=== PATIENT | female | born 1960 | race Caucasian/White ===

== ENCOUNTER 2018-06-25 14:15 | Observation (INO) | payer OTHER ==
[2018-06-25 15:25] LABS: BASO % 0.4 % (0.0-2.0); EOS # 0.3 K/uL (0.0-0.7); EOS % 5.2 % (0.0-4.0); HEMOGLOBIN 12.7 g/dL (11.0-16.0); LYMPH # 0.7 K/uL (1.0-4.3); LYMPH % 11.4 % (20.0-40.0); MEAN CELL VOLUME 85.7 fL (81.0-99.0); MEAN CORPUSCULAR HEMOGLOBIN 29.4 pg (27.0-31.0); MEAN CORPUSCULAR HGB CONC 34.3 g/dL (33.0-37.0); MEAN PLATELET VOLUME 7.1 fL (7.2-11.7); MONO # 0.3 K/uL (0.0-0.8); MONO % 5.1 % (0.0-10.0); NEUT # 4.8 K/uL (1.8-7.0); NEUT % 77.9 % (50.0-75.0); RBC 4.3 Mil/uL (3.80-5.20); RED CELL DISTRIBUTION WIDTH 13.8 % (11.5-14.5); WHITE BLOOD COUNT 6.1 K/uL (4.8-10.8)
--- NOTE | 2018-06-25 15:30 | C.PDOC ---
History Of Present Illness 58 yo female with PMHx history of pulmonary fibrosis sent to ER by Dr. Sue Cabrera for evaluation of shortness of breath, productive cough and fever since yesterday. Patient denies chest pain, leg edema, rash, abdominal pain, nausea/ vomiting. Patient's history is limited due to hearing impairment. Time Seen by Provider: 06/25/18 14:48 Chief Complaint (Nursing): Shortness Of Breath History Per: Patient, Manager Foreign History/Exam Limitations: physical impairment (hearing impairment) Associated Symptoms: denies: Fever, Chills, Chest Pain, Ankle/Leg Swelling Additional History Per: Patient Past Medical History Reviewed: Historical Data, Nursing Documentation, Vital Signs Vital Signs: Last Vital Signs Temp 97.3 F L 06/26/18 15:55 Pulse 82 06/26/18 16:09 Resp 18 06/26/18 15:55 BP 138/77 06/26/18 15:55 Pulse Ox 95 06/26/18 16:28 - Medical History Other PMH: pulmonary fibrosis Family History: States: No Known Family Hx - Social History Hx Tobacco Use: No Hx Alcohol Use: No Hx Substance Use: No - Immunization History Hx Tetanus Toxoid Vaccination: No Hx Influenza Vaccination: No Hx Pneumococcal Vaccination: No Review Of Systems Constitutional: Negative for: Fever, Chills Cardiovascular: Negative for: Chest Pain Respiratory: Positive for: Cough, Shortness of Breath (persistent) Gastrointestinal: Negative for: Nausea, Vomiting, Abdominal Pain Genitourinary: Negative for: Dysuria, Hematuria Musculoskeletal: Negative for: Other (leg swelling) Neurological: Negative for: Weakness, Numbness Physical Exam - Physical Exam Appears: Well, Non-toxic, Other (speaking in full sentences) Skin: Normal Color, Warm, Dry, No Rash Eye(s): bilateral: Normal Inspection Oral Mucosa: Moist Neck: Supple Cardiovascular: Rhythm Regular Respiratory: No Rales, No Rhonchi, No Wheezing, Other (coarse breath sounds at bilateral bases) Gastrointestinal/Abdominal: Normal Exam, Bowel Sounds, Soft, No Tenderness Back: Normal Inspection Extremity: Normal ROM, No Pedal Edema, No Calf Tenderness Neurological/Psych: Oriented x3 ED Course And Treatment - Laboratory Results Result Diagrams: 06/25/18 15:20 06/25/18 15:20 ECG: Interpreted By Me, Viewed By Me ECG Rhythm: Sinus Rhythm ECG Interpretation: Normal Interpretation Of ECG: Normal axis. No acute ST/T wave changes Rate From EC (bpm) O2 Sat by Pulse Oximetry: 95 (RA) Pulse Ox Interpretation: Normal - Other Rad CXR X-Ray: Viewed By Me, Read By Radiologist Interpretation: Accession No. : [id number]. Patient Name / ID : AI HUMPHREYS / [id number]. Exam Date : 06/25/2018 15:32:45 ( Approved ). Study Comment : Sex / Age : F / 58Y. Creator : Bella Velez. Dictator : Tyler Garcia MD. Emergency Medcl Emt : Shaft Tender : Tyler Garcia MD. Approver2 : Report Date : 06/25/2018 16:25:21. My Comment : . Date of service: 06/25/2018. HISTORY: sob. COMPARISON: No prior. TECHNIQUE: Chest PA and lateral. FINDINGS: LUNGS: Reticular opacities more prominent at the lower lobe. The possibility of lung fibrosis cannot be excluded. PLEURA: No significant pleural effusion identified. No pneumothorax apparent. CARDIOVASCULAR: Normal. OSSEOUS STRUCTURES: No significant abnormalities. VISUALIZED UPPER ABDOMEN: Normal. OTHER FINDINGS: None. IMPRESSION: Reticular opacities more prominent at the lower lobes suspicious for pulmonary congestion or lung fibrosis. If indicated further assessment by CT is suggested. Progress Note: Blood work, CXR, EKG ordered and reviewed. CXR shows B/L infiltrates? - IV Rocephin and Azithromycin ordered. Dr. De Leon consult entered for pulmonology. - Physician Consult Information Physician Contacted: Tanya Coello Outcome Of Conversation: Discussed patient with Dr. Coello, agrees with admission for pneumonia, dyspnea, pulmonary fibrosis. Dr. De Leon also spoken with and aware of consult. CT scan chest pending, they will follow. Disposition - Disposition Disposition: HOSPITALIZED Disposition Time: 18:08 Condition: STABLE - Clinical Impression Clinical Impression: Pulmonary fibrosis, Pneumonia, Dyspnea - Scribe Statement The provider has reviewed the documentation as recorded by the Mariselibe Betzy Garza Provider Attestation: All medical record entries made by the Bria were at my direction and personally dictated by me. I have reviewed the chart and agree that the record accurately reflects my personal performance of the history, physical exam, medical decision making, and the department course for this patient. I have also personally directed, reviewed, and agree with the discharge instructions and disposition. Decision To Admit - Pt Status Changed To: Hospital Disposition Of: Observation - . Bed Request Type: Telemetry Admitting Physician: Tanya Coello Patient Diagnosis: Pulmonary fibrosis, Dyspnea, Pneumonia
[2018-06-25 15:33] LABS: PROTHROMBIN TIME 11.4 SECONDS (9.7-12.2)
[2018-06-25 15:37] LABS: ALB/GLOB RATIO 1.2 (1.0-2.1); ALBUMIN 4.2 g/dL (3.5-5.0); ALT/SGPT 105 U/L (9-52); AST/SGOT 71 U/L (14-36); BLOOD UREA NITROGEN 10 mg/dL (7-17); CALCIUM 9.4 mg/dl (8.6-10.4); GFR AFRICAN-AMERICAN > 60; GFR NON-AFRICAN AMERICAN > 60
[2018-06-25 15:49] LABS: B-TYPE NATRIURETIC PEPTIDE 292 pg/mL (0-900); CK-MB 0.25 ng/mL (0.0-3.38)
[2018-06-25] MEDS ORDERED: cefTRIAXone IV 1 gm in Dextros 50 ML IV STA (17:26)
[2018-06-25] MEDS ORDERED: Azithromycin 500 MG in Sodium Chloride 0.9% 250 ML IVPB STA (17:27)
--- NOTE | 2018-06-25 17:32 | RAD ---
Date of service: 06/25/2018 HISTORY: sob COMPARISON: No prior. TECHNIQUE: Chest PA and lateral FINDINGS: LUNGS: Reticular opacities more prominent at the lower lobe. The possibility of lung fibrosis cannot be excluded. PLEURA: No significant pleural effusion identified. No pneumothorax apparent. CARDIOVASCULAR: Normal. OSSEOUS STRUCTURES: No significant abnormalities. VISUALIZED UPPER ABDOMEN: Normal. OTHER FINDINGS: None. IMPRESSION: Reticular opacities more prominent at the lower lobes suspicious for pulmonary congestion or lung fibrosis. If indicated further assessment by CT is suggested.
[2018-06-25] MEDS ORDERED: cefTRIAXone IV 1 gm in Dextros 50 ML IVPB ONE (17:53)
[2018-06-25] MEDS ORDERED: Promethazine DM 6.25 mg-15 mg/5 ml Syrup PO PRN (18:30)
--- NOTE | 2018-06-25 19:08 | CP.PCM.CON ---
History of Present Illness - History of Present Illness History of Present Illness: reason for consultation: shortness of breath,and cough 58-year-old female with history of pulmonary fibrosis presented to emergency room with worsening shortness of breath, productive cough and subjective fever since yesterday. Patient has been taking OFEV treatment for pulmonary fibrosis. Review of Systems - Review of Systems All systems: reviewed and no additional remarkable complaints except (shortness of breath and cough) Past Patient History - Infectious Disease Hx of Infectious Diseases: None - Past Social History Smoking Status: Never Smoked - PSYCHIATRIC Hx Substance Use: No Meds Allergies/Adverse Reactions: Allergies Allergy/AdvReac Type Severity Reaction Status Date / Time No Known Allergies Allergy Verified 06/17/15 09:28 - Medications Medications: Current Medications Famotidine (Pepcid) 20 mg IVP Q12 [facility] Heparin Sodium (Porcine) (Heparin) 5,000 units SC Q8 [facility] Ceftriaxone Sodium 1 gm/ (Sodium Chloride) 100 mls @ 100 mls/hr IVPB DAILY [facility] PRN Reason: Protocol Azithromycin 500 mg/ Sodium (Chloride) 250 mls @ 250 mls/hr IVPB DAILY [facility] PRN Reason: Protocol Methylprednisolone (Solu-Medrol) 60 mg IV Q6 [facility] Promethazine HCl/Dextromethorphan (Phenergan Dm Syrup) 5 ml PO Q6H PRN PRN Reason: Cough Physical Exam - Head Exam Head Exam: ATRAUMATIC, NORMOCEPHALIC - Eye Exam Eye Exam: Normal appearance - ENT Exam ENT Exam: Mucous Membranes Moist - Neck Exam Neck exam: Positive for: Normal Inspection - Respiratory Exam Respiratory Exam: Rales - Cardiovascular Exam Cardiovascular Exam: REGULAR RHYTHM - GI/Abdominal Exam GI & Abdominal Exam: Normal Bowel Sounds, Soft Results - Vital Signs Recent Vital Signs: Last Vital Signs Temp 99 F 06/25/18 14:19 Pulse 92 H 06/25/18 14:19 Resp 17 06/25/18 14:19 BP 124/87 06/25/18 14:19 Pulse Ox 95 06/25/18 18:30 - Labs Result Diagrams: 06/25/18 15:20 06/25/18 15:20 Labs: Laboratory Results - last 24 hr 06/25/18 06/25/18 06/25/18 15:20 15:20 15:20 WBC 6.1 RBC 4.30 Hgb 12.7 Hct 36.9 MCV 85.7 MCH 29.4 MCHC 34.3 RDW 13.8 Plt Count 322 MPV 7.1 L Neut % (Auto) 77.9 H Lymph % (Auto) 11.4 L Greene % (Auto) 5.1 Eos % (Auto) 5.2 H Baso % (Auto) 0.4 Neut # (Auto) 4.8 Lymph # (Auto) 0.7 L Greene # (Auto) 0.3 Eos # (Auto) 0.3 Baso # (Auto) 0.0 PT 11.4 INR 1.0 APTT 31 Sodium 141 Potassium 4.1 Chloride 104 Carbon Dioxide 25 Anion Gap 16 BUN 10 Creatinine 0.9 Est GFR ( Amer) > 60 Est GFR (Non-Af Amer) > 60 Random Glucose 98 Calcium 9.4 Total Bilirubin 0.9 AST 71 H ALT 105 H Alkaline Phosphatase 117 Total Creatine Kinase 79 CK-MB (Mass) 0.25 Troponin I < 0.0120 NT-Pro-B Natriuret Pep 292 Total Protein 7.6 Albumin 4.2 Globulin 3.4 Albumin/Globulin Ratio 1.2 Assessment & Plan (1) Pneumonia Assessment and Plan: continue IV antibiotics Follow-up culture and sensitivity Nebulizer treatment and steroids Status: Acute (2) Pulmonary fibrosis Status: Acute
--- NOTE | 2018-06-25 19:55 | CP.PCM.HP ---
History of Present Illness - History of Present Illness History of Present Illness: COMPREHENSIVE HISTORY & PHYSICAL EXAM HPI Patient is admitted from [facility] emergency room with shortness of breath wheezing cough with mild dry expectoration. Patient has history of pulmonary fibrosis. CAT scan of the chest was done which showed generalized fibrosis and reticular pattern. With possibility of pneumonia on the lower base. PAST HIST. PERSONAL HIST: Smoking. N Alcohol. N Allergy N Travel_- . FAMILY HIST : ROS : Constitutional: Negative for weight change, chills, night sweats, fatigue and usage of assist device. Eyes: Negative for redness, swelling, itching, discharge, vision changes, blurry vision, double vision, glaucoma, cataracts, Ears: Negative for hearing loss, ringing, , tinnitus, vertigo Nose: Negative for rhinorrhea, stuffiness, sniffing, itching, postnasal drip, discoloration, nasal congestion and epistaxis. Throat: Negative for throat clearing, sore throat, hoarseness, difficulty swallowing and difficulty speaking. Respiratory: Negative for,daytime somnolence, chronic cough, hemoptysis, snoring at night, Cardiovascular: Negative for chest pain, palpitations, orthopnea, PND, Edema of legs, leg cramps, angina, claudication, , irregular heartbeat, Neurology: Negative for irritability, muscle weakness, numbness and tingling, seizures, tremors, migraines, slurred speech, syncope, memory loss, mood changes , recurrent headaches Gastrointestinal: Negative for difficulty swallowing, diarrhea, constipation, black stools, rectal bleeding, nausea, flatulence, reflux, poor appetite, changes in bowel habits, abdominal pain Genitourinary: Negative for frequent urination, hematuria, discharge, incontinence, urinary retention, frequent UTI, Psychiatric: Negative for depression, anxiety/panic, suicidal tendencies, Musculoskeletal: Negative for swollen joints, back pain, , neck pain, morning stiffness of joints, . Skin: Negative for rash, ulcers, itching, dry skin and pigmented lesions. P/E: Constitutional: Appears stated age and in no apparent distress. Head: Normocephalic. Ears: External ear canals patent without inflammation. Tympanic membranes intact with normal light reflex and landmark. Eyes: Pupils are central, bilaterally equal, symmetrical and reacts to light with normal movements and no icterus or pallor. Nose: External nares are patent. Mucosa is pink Mouth-Throat: Good general appearance and condition. No post-pharyngeal/oropharyngeal erythema and tonsillar hypertrophy. Good dental hygiene. Neck-Lymphatic: Neck is supple with normal ROM, no thyromegaly, lymph nodes or masses. JVD is normal with no carotid bruit. Lungs: Bilateral rhonchi with poor air entry. Cardiovascular: S1 and S2 are normal with no murmurs, gallops and rub. GI Exam: No hepatomegaly. Abdomen is soft and non-tender. No Organomegaly , masses or hernias are evident and bowel sounds are normal and active. Neurology: Higher function and all cranial nerves intact, with no gross motor or sensory deficit. Superficial and deep reflexes are normal with downwards planters. No cerebellar deficit with normal gait. Musculoskeletal: No tender spots with normal curvature of the spine with no swelling or restricted ROM of the small and large joints. Extremities: Homans sign absent. Intact pulses with no pitting edema, calf tenderness or skin color changes. Skin: No rash, eruptions or abnormal skin pigmentation LAB/RADIOLOGY: ASSESMENT : Acute exacerbation of COPD with pulmonary fibrosis. Possible lower lobe pneumonia. PLAN: Nebulizer [id number], IV steroids and IV antibiotics. Present on Admission - Present on Admission Any Indicators Present on Admission: No Past Patient History - Infectious Disease Hx of Infectious Diseases: None - Past Social History Smoking Status: Never Smoked - PSYCHIATRIC Hx Substance Use: No Meds Allergies/Adverse Reactions: Allergies Allergy/AdvReac Type Severity Reaction Status Date / Time No Known Allergies Allergy Verified 06/17/15 09:28 Results - Vital Signs Recent Vital Signs: Last Vital Signs Temp 98.2 F 06/25/18 19:50 Pulse 87 06/25/18 19:50 Resp 20 06/25/18 19:50 BP 149/88 06/25/18 19:50 Pulse Ox 98 06/25/18 19:50 - Labs Result Diagrams: 06/25/18 15:20 06/25/18 15:20 Labs: Laboratory Results - last 24 hr 06/25/18 06/25/18 06/25/18 15:20 15:20 15:20 WBC 6.1 RBC 4.30 Hgb 12.7 Hct 36.9 MCV 85.7 MCH 29.4 MCHC 34.3 RDW 13.8 Plt Count 322 MPV 7.1 L Neut % (Auto) 77.9 H Lymph % (Auto) 11.4 L Heard % (Auto) 5.1 Eos % (Auto) 5.2 H Baso % (Auto) 0.4 Neut # (Auto) 4.8 Lymph # (Auto) 0.7 L Heard # (Auto) 0.3 Eos # (Auto) 0.3 Baso # (Auto) 0.0 PT 11.4 INR 1.0 APTT 31 Sodium 141 Potassium 4.1 Chloride 104 Carbon Dioxide 25 Anion Gap 16 BUN 10 Creatinine 0.9 Est GFR ( Amer) > 60 Est GFR (Non-Af Amer) > 60 Random Glucose 98 Calcium 9.4 Total Bilirubin 0.9 AST 71 H ALT 105 H Alkaline Phosphatase 117 Total Creatine Kinase 79 CK-MB (Mass) 0.25 Troponin I < 0.0120 NT-Pro-B Natriuret Pep 292 Total Protein 7.6 Albumin 4.2 Globulin 3.4 Albumin/Globulin Ratio 1.2
--- NOTE | 2018-06-26 05:40 | CT ---
Date of service: 06/25/2018 PROCEDURE: CT Chest without contrast HISTORY: dyspnea, pneumonia vs pulm fibrosis COMPARISON: None available. TECHNIQUE: Contiguous axial images were obtained through the chest without intravenous contrast enhancement. Sagittal and coronal reconstructions were performed. Radiation dose (DLP): 187.49 mGy-cm. This CT exam was performed using one or more of the following dose reduction techniques: Automated exposure control, adjustment of the mA and/or kV according to patient size, and/or use of iterative reconstruction technique. FINDINGS: LUNGS: There are reticular opacities and patchy ground-glass opacities in the lungs more prominent at the peripheral lungs and more prominent at the lung bases and lower lobes. There is associated mild bronchiectasis at the lower lobes. Findings suggestive of interstitial lung disease and early changes of lung fibrosis. The differential consideration includes but not limited to UIP, pneumonitis and chronic hypersensitivity pneumonitis. No evidence of pneumonia. MEDIASTINUM: The ascending thoracic aorta is mildly ectatic. The heart is upper normal limit in size. Main pulmonary artery unremarkable. No vascular congestion. No lymphadenopathy. PLEURA: No pleural fluid. No pneumothorax. BONES: No fracture. No destructive lesion. UPPER ABDOMEN: Small hiatus hernia is noted. The esophagus is mildly dilated. No evidence of acute pathology in the upper abdomen OTHER FINDINGS: 6 millimeter nonspecific right breast nodule may represent intramammary lymph node. IMPRESSION: Reticular and ground-glass opacities more prominent at the lower lobes and peripheral portion of the upper lobes likely represent interstitial lung disease and an early changes of lung fibrosis. Mild bronchiectasis at the lung bases likely related to lung fibrosis. The differential diagnosis includes usual interstitial pneumonia UIP, nonspecific interstitial pneumonia and chronic hypersensitivity pneumonitis. Nonspecific subcentimeter right breast nodule. Further assessment by sonogram or mammogram is suggested. Preliminary report was submitted by [facility]
[2018-06-26] MEDS: Azithromycin 500 MG in Sodium Chloride 0.9% 250 ML IVPB SCH (09:34)
--- NOTE | 2018-06-26 14:08 | CP.PCM.PN ---
Subjective - Date & Time of Evaluation Date of Evaluation: 06/26/18 Time of Evaluation: 14:06 - Subjective Subjective: CHIEF COMPLAINTS TODAY : Less shortness of breath and cough. ROS. HEENT : N. Resp : No hemoptysis Cardio : No anginal CP, PND, orthopnea, palpitation GI : No abd.pain, n/v ,diarrhea or GI bleeding . NUCLEAR MEDICINE SPECIALIST : No headache, vertigo, focal deficit. Musculoskel : No joint swelling , Derm : No rash Psych : Normal affect. Ext : No swelling ,calf pain PE. Pt. is alert awake in no distress. V.S As noted in the chart Head ,ear nose,throat and eyes : Normal. Neck : Supple with normal carotids. Lungs bilateral poor air entry with dry cramps. Heart : S1 & S2 normal with S4. No murmur. Abd : Soft non tender with normal bowel sounds. Neuro : Moves all ext. with no localized deficit. Ext : No edema with intact pulses.Non tender calves Derm : No rashes or decubitus ulcer. LABS/RADIOLOGY: ASSESSMENT/PLAN : Continue present management of IV steroids antibiotics and nebulized Objective - Vital Signs/Intake and Output Vital Signs (last 24 hours): Temp Pulse Resp BP Pulse Ox 97.4 F L 66 20 113/74 99 06/26/18 08:46 06/26/18 08:46 06/26/18 08:46 06/26/18 08:46 06/26/18 08:46 Intake and Output: 06/26/18 06/26/18 11:59 23:59 Intake Total 40 Balance 40 - Medications Medications: Current Medications Famotidine (Pepcid) 20 mg IVP Q12 [facility] Last Admin: 06/26/18 09:33 Dose: 20 mg Heparin Sodium (Porcine) (Heparin) 5,000 units SC Q8 [facility] Last Admin: 06/26/18 14:04 Dose: Not Given Ceftriaxone Sodium 1 gm/ (Sodium Chloride) 100 mls @ 100 mls/hr IVPB DAILY [facility] PRN Reason: Protocol Last Admin: 06/26/18 11:00 Dose: 100 mls/hr Azithromycin 500 mg/ Sodium (Chloride) 250 mls @ 250 mls/hr IVPB DAILY [facility] PRN Reason: Protocol Last Admin: 06/26/18 09:34 Dose: 250 mls/hr Methylprednisolone (Solu-Medrol) 60 mg IV Q6 [facility] Last Admin: 06/26/18 11:58 Dose: 60 mg Promethazine HCl/Dextromethorphan (Phenergan Dm Syrup) 5 ml PO Q6H PRN PRN Reason: Cough - Labs Labs: 06/25/18 15:20 06/25/18 15:20 PT 11.4 SECONDS (9.7-12.2) 06/25/18 15:20 INR 1.0 06/25/18 15:20 APTT 31 SECONDS (21-34) 06/25/18 15:20
[2018-06-26] MEDS: Albuterol-Ipratrop 3 mg / 0.5 (3 ml) UD INH SCH ×3 (16:02→23:36)
--- NOTE | 2018-06-26 18:00 | CP.PCM.PN ---
Subjective - Date & Time of Evaluation Date of Evaluation: 06/26/18 Time of Evaluation: 15:25 - Subjective Subjective: patient seen and examined Breathing and cough much improved Afebrile Patient wants to go home Objective - Vital Signs/Intake and Output Vital Signs (last 24 hours): Temp Pulse Resp BP Pulse Ox 97.3 F L 82 18 138/77 95 06/26/18 15:55 06/26/18 16:09 06/26/18 15:55 06/26/18 15:55 06/26/18 16:28 Intake and Output: 06/26/18 06/26/18 06:59 18:59 Intake Total 40 350 Balance 40 350 - Medications Medications: Current Medications Albuterol/Ipratropium (Duoneb 3 Mg/0.5 Mg (3 Ml) Ud) 3 ml INH RQ4 [facility] Last Admin: 06/26/18 16:02 Dose: 3 ml Famotidine (Pepcid) 20 mg IVP Q12 [facility] Last Admin: 06/26/18 09:33 Dose: 20 mg Heparin Sodium (Porcine) (Heparin) 5,000 units SC Q8 [facility] Last Admin: 06/26/18 14:04 Dose: Not Given Ceftriaxone Sodium 1 gm/ (Sodium Chloride) 100 mls @ 100 mls/hr IVPB DAILY [facility] PRN Reason: Protocol Last Admin: 06/26/18 11:00 Dose: 100 mls/hr Azithromycin 500 mg/ Sodium (Chloride) 250 mls @ 250 mls/hr IVPB DAILY [facility] PRN Reason: Protocol Last Admin: 06/26/18 09:34 Dose: 250 mls/hr Methylprednisolone (Solu-Medrol) 60 mg IV Q6 [facility] Last Admin: 06/26/18 17:32 Dose: 60 mg Promethazine HCl/Dextromethorphan (Phenergan Dm Syrup) 5 ml PO Q6H PRN PRN Reason: Cough - Labs Labs: 06/25/18 15:20 06/25/18 15:20 PT 11.4 SECONDS (9.7-12.2) 06/25/18 15:20 INR 1.0 06/25/18 15:20 APTT 31 SECONDS (21-34) 06/25/18 15:20 - Head Exam Head Exam: ATRAUMATIC, NORMOCEPHALIC - ENT Exam ENT Exam: Mucous Membranes Moist - Neck Exam Neck Exam: Normal Inspection - Respiratory Exam Respiratory Exam: Rales - Cardiovascular Exam Cardiovascular Exam: REGULAR RHYTHM - GI/Abdominal Exam GI & Abdominal Exam: Soft, Normal Bowel Sounds - Extremities Exam Extremities Exam: Normal Inspection Assessment and Plan (1) Pneumonia Assessment & Plan: continue antibiotics and taper steroids Status: Acute (2) Pulmonary fibrosis Status: Acute
[2018-06-27] MEDS: Albuterol-Ipratrop 3 mg / 0.5 (3 ml) UD INH SCH ×6 (03:11→23:32)
[2018-06-27 06:16] LABS: BASO # 0.1 K/uL (0.0-0.2); BASO % 0.9 % (0.0-2.0); LYMPH # 0.7 K/uL (1.0-4.3); LYMPH % 6.2 % (20.0-40.0); MEAN CELL VOLUME 86.8 fL (81.0-99.0); MEAN CORPUSCULAR HEMOGLOBIN 29.8 pg (27.0-31.0); MEAN CORPUSCULAR HGB CONC 34.4 g/dL (33.0-37.0); MEAN PLATELET VOLUME 7.2 fL (7.2-11.7); MONO # 0.3 K/uL (0.0-0.8); MONO % 3.3 % (0.0-10.0); NEUT # 9.4 K/uL (1.8-7.0); NEUT % 89.6 % (50.0-75.0); PLATELET COUNT 366 K/uL (130-400); RBC 4.01 Mil/uL (3.80-5.20); RED CELL DISTRIBUTION WIDTH 13.4 % (11.5-14.5); WHITE BLOOD COUNT 10.5 K/uL (4.8-10.8)
[2018-06-27 06:38] LABS: ALB/GLOB RATIO 1.3 (1.0-2.1); ALBUMIN 3.9 g/dL (3.5-5.0); ALT/SGPT 137 U/L (9-52); AST/SGOT 79 U/L (14-36); BLOOD UREA NITROGEN 13 mg/dL (7-17); CALCIUM 9.4 mg/dl (8.6-10.4); GFR AFRICAN-AMERICAN > 60; GFR NON-AFRICAN AMERICAN > 60
[2018-06-27 08:48] LABS: BANDS 1 % (0-2); LYMPHOCYTE 5 % (20-40); MONOCYTE 4 % (0-10); NEUTROPHIL 90 % (50-75); PLATELET ESTIMATE NORMAL (NORMAL); TOTAL CELLS COUNTED 100
[2018-06-27 08:49] LABS: ANISOCYTOSIS SLIGHT; HYPOCHROMIC SLIGHT; POIKILOCYTOSIS SLIGHT
[2018-06-27] MEDS: Azithromycin 500 MG in Sodium Chloride 0.9% 250 ML IVPB SCH (10:36)
--- NOTE | 2018-06-27 13:22 | CP.PCM.PN ---
Subjective - Date & Time of Evaluation Date of Evaluation: 06/27/18 Time of Evaluation: 11:20 - Subjective Subjective: patient seen and examined Breathing better Less cough Afebrile No chest pain Objective - Vital Signs/Intake and Output Vital Signs (last 24 hours): Temp Pulse Resp BP Pulse Ox 97.6 F 82 18 105/64 98 06/27/18 08:11 06/27/18 08:11 06/27/18 08:11 06/27/18 08:11 06/27/18 08:11 Intake and Output: 06/27/18 06/27/18 06:59 18:59 Intake Total 40 Balance 40 - Medications Medications: Current Medications Albuterol/Ipratropium (Duoneb 3 Mg/0.5 Mg (3 Ml) Ud) 3 ml INH RQ4 [facility] Last Admin: 06/27/18 07:10 Dose: 3 ml Famotidine (Pepcid) 20 mg IVP Q12 [facility] Last Admin: 06/27/18 09:15 Dose: 20 mg Heparin Sodium (Porcine) (Heparin) 5,000 units SC Q8 [facility] Last Admin: 06/27/18 05:44 Dose: 5,000 units Ceftriaxone Sodium 1 gm/ (Sodium Chloride) 100 mls @ 100 mls/hr IVPB DAILY [facility] PRN Reason: Protocol Last Admin: 06/27/18 09:15 Dose: 100 mls/hr Azithromycin 500 mg/ Sodium (Chloride) 250 mls @ 250 mls/hr IVPB DAILY [facility] PRN Reason: Protocol Last Admin: 06/27/18 10:36 Dose: 250 mls/hr Methylprednisolone (Solu-Medrol) 60 mg IV Q6 [facility] Last Admin: 06/27/18 11:38 Dose: 60 mg Promethazine HCl/Dextromethorphan (Phenergan Dm Syrup) 5 ml PO Q6H PRN PRN Reason: Cough - Labs Labs: 06/27/18 06:11 06/27/18 06:11 PT 11.4 SECONDS (9.7-12.2) 06/25/18 15:20 INR 1.0 06/25/18 15:20 APTT 31 SECONDS (21-34) 06/25/18 15:20 - Head Exam Head Exam: ATRAUMATIC, NORMOCEPHALIC - Eye Exam Eye Exam: Normal appearance - ENT Exam ENT Exam: Mucous Membranes Moist - Neck Exam Neck Exam: Normal Inspection - Respiratory Exam Respiratory Exam: Rales - Cardiovascular Exam Cardiovascular Exam: REGULAR RHYTHM - GI/Abdominal Exam GI & Abdominal Exam: Soft, Normal Bowel Sounds Assessment and Plan (1) Pneumonia Assessment & Plan: switch to p.o. antibiotics and stop azithromycin because of elevated LFTs P.o. prednisone Stable from pulmonary standpoin Status: Acute (2) Pulmonary fibrosis Status: Acute
--- NOTE | 2018-06-27 14:32 | CP.PCM.PN ---
Subjective - Date & Time of Evaluation Date of Evaluation: 06/27/18 Time of Evaluation: 14:29 - Subjective Subjective: CHIEF COMPLAINTS TODAY : Patient is mute and history obtained through computers. Patient still has mild cough and shortness of breath. ROS. HEENT : N. Resp : No hemoptysis Cardio : No anginal CP, PND, orthopnea, palpitation GI : No abd.pain, n/v ,diarrhea or GI bleeding . 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 Musculoskel : No joint swelling , Derm : No rash Psych : Normal affect. Ext : No swelling ,calf pain PE. Pt. is alert awake in no distress. V.S As noted in the chart Head ,ear nose,throat and eyes : Normal. Neck : Supple with normal carotids. Lungs: Bilateral poor air entry with rhonchi Heart : S1 & S2 normal with S4. No murmur. Abd : Soft non tender with normal bowel sounds. Neuro : Moves all ext. with no localized deficit. Ext : No edema with intact pulses.Non tender calves Derm : No rashes or decubitus ulcer. LABS/RADIOLOGY: Liver function is trending up ASSESSMENT/PLAN : ID evaluation for antibiotics as the current antibiotic is probably causing elevation in LFT. Continue bronchodilators and IV steroids. Objective - Vital Signs/Intake and Output Vital Signs (last 24 hours): Temp Pulse Resp BP Pulse Ox 97.6 F 84 18 111/69 98 06/27/18 08:11 06/27/18 13:53 06/27/18 08:11 06/27/18 13:53 06/27/18 08:11 Intake and Output: 06/27/18 06/27/18 11:59 23:59 Intake Total 40 Balance 40 - Medications Medications: Current Medications Albuterol/Ipratropium (Duoneb 3 Mg/0.5 Mg (3 Ml) Ud) 3 ml INH RQ4 [facility] Last Admin: 06/27/18 13:22 Dose: 3 ml Famotidine (Pepcid) 20 mg IVP Q12 [facility] Last Admin: 06/27/18 09:15 Dose: 20 mg Heparin Sodium (Porcine) (Heparin) 5,000 units SC Q8 [facility] Last Admin: 06/27/18 13:54 Dose: 5,000 units Ceftriaxone Sodium 1 gm/ (Sodium Chloride) 100 mls @ 100 mls/hr IVPB DAILY [facility] PRN Reason: Protocol Last Admin: 06/27/18 09:15 Dose: 100 mls/hr Azithromycin 500 mg/ Sodium (Chloride) 250 mls @ 250 mls/hr IVPB DAILY [facility] PRN Reason: Protocol Last Admin: 06/27/18 10:36 Dose: 250 mls/hr Methylprednisolone (Solu-Medrol) 60 mg IV Q6 [facility] Last Admin: 06/27/18 11:38 Dose: 60 mg Promethazine HCl/Dextromethorphan (Phenergan Dm Syrup) 5 ml PO Q6H PRN PRN Reason: Cough - Labs Labs: 06/27/18 06:11 06/27/18 06:11 PT 11.4 SECONDS (9.7-12.2) 06/25/18 15:20 INR 1.0 06/25/18 15:20 APTT 31 SECONDS (21-34) 06/25/18 15:20
--- NOTE | 2018-06-27 19:51 | CP.PCM.CON ---
History of Present Illness - History of Present Illness History of Present Illness: INFECTIOUS DISEASE CONSULT. PT SEEN ,CHART REVIEWED. DICTATED; DICT. NO. [id number] IMPRESSION; . PNEUMONIAE LEFT LOWER LOBE W BRONCHIECTASIS. .ILD WITH EARLY PULMONARY FIBROSIS ON TKI -OFEV. . EXACERBATION OF COPD. .TRANSAMINITIS-? DRUG-INDUCED. . HX OF ARTHRITIS ? RHEUMATOID. PLAN ; SEE ORDER SHEET. DC IV ROCEPHIN PT OFF ZITHROMAX TODAY. START IV CEFIPIME 1GM OD DAILY. TAPERING STEROIDS PER PULMONARY. ATYPICAL TITRES ALPHA 1 ANTITRYPSIN AB. [place] HEP SCREEN . CASE DISCUSSED WITH PMD,PULMONARYAND STAFF. WILL F/U WITH YOU. Past Patient History - Infectious Disease Hx of Infectious Diseases: None - Past Social History Smoking Status: Never Smoked - PSYCHIATRIC Hx Substance Use: No Meds Allergies/Adverse Reactions: Allergies Allergy/AdvReac Type Severity Reaction Status Date / Time No Known Allergies Allergy Verified 06/17/15 09:28 - Medications Medications: Current Medications Albuterol/Ipratropium (Duoneb 3 Mg/0.5 Mg (3 Ml) Ud) 3 ml INH RQ4 [facility] Last Admin: 06/27/18 19:35 Dose: 3 ml Famotidine (Pepcid) 20 mg IVP Q12 [facility] Last Admin: 06/27/18 09:15 Dose: 20 mg Heparin Sodium (Porcine) (Heparin) 5,000 units SC Q8 [facility] Last Admin: 06/27/18 13:54 Dose: 5,000 units Cefepime HCl 1 gm/ Sodium (Chloride) 50 mls @ 100 mls/hr IVPB DAILY [facility] PRN Reason: Protocol Prednisone (Prednisone Tab) 20 mg PO DAILY [facility] Last Admin: 06/27/18 17:51 Dose: 20 mg Promethazine HCl/Dextromethorphan (Phenergan Dm Syrup) 5 ml PO Q6H PRN PRN Reason: Cough Results - Vital Signs Recent Vital Signs: Last Vital Signs Temp 98.1 F 06/27/18 15:37 Pulse 59 L 06/27/18 16:00 Resp 18 06/27/18 15:37 BP 124/77 06/27/18 15:37 Pulse Ox 99 06/27/18 15:37 - Labs Result Diagrams: 06/28/18 06:35 06/28/18 06:35 Labs: Laboratory Results - last 24 hr 06/27/18 06/27/18 06:11 06:11 WBC 10.5 D RBC 4.01 Hgb 12.0 Hct 34.8 MCV 86.8 MCH 29.8 MCHC 34.4 RDW 13.4 Plt Count 366 MPV 7.2 Neut % (Auto) 89.6 H Lymph % (Auto) 6.2 L [place] % (Auto) 3.3 Eos % (Auto) 0.0 Baso % (Auto) 0.9 Neut # (Auto) 9.4 H Lymph # (Auto) 0.7 L [place] # (Auto) 0.3 Eos # (Auto) 0.0 Baso # (Auto) 0.1 Neutrophils % (Manual) 90 H Band Neutrophils % 1 Lymphocytes % (Manual) 5 L Monocytes % (Manual) 4 Platelet Estimate Normal Hypochromasia (manual) Slight Poikilocytosis (manual Slight Anisocytosis (manual) Slight Sodium 143 Potassium 4.2 Chloride 108 H Carbon Dioxide 21 L Anion Gap 18 BUN 13 Creatinine 0.7 Est GFR ( Amer) > 60 Est GFR (Non-Af Amer) > 60 Random Glucose 173 H Calcium 9.4 Phosphorus 2.6 Magnesium 2.5 H Total Bilirubin 0.3 AST 79 H ALT 137 H D Alkaline Phosphatase 115 Total Protein 6.9 Albumin 3.9 Globulin 3.0 Albumin/Globulin Ratio 1.3
--- NOTE | 2018-06-27 21:34 | CARD ---
APPROVED REPORT Date of service: 06/25/2018 EKG Measurement Heart [id number] <Conclusion> Normal sinus rhythm Normal ECG
[2018-06-28] MEDS: Albuterol-Ipratrop 3 mg / 0.5 (3 ml) UD INH SCH ×4 (03:20→23:31)
[2018-06-28 06:50] LABS: BASO % 0.2 % (0.0-2.0); HEMOGLOBIN 12.3 g/dL (11.0-16.0); LYMPH % 8.2 % (20.0-40.0); MEAN CELL VOLUME 87.3 fL (81.0-99.0); MEAN CORPUSCULAR HEMOGLOBIN 29.5 pg (27.0-31.0); MEAN CORPUSCULAR HGB CONC 33.8 g/dL (33.0-37.0); MEAN PLATELET VOLUME 7.3 fL (7.2-11.7); MONO # 0.6 K/uL (0.0-0.8); MONO % 5.4 % (0.0-10.0); NEUT # 10.2 K/uL (1.8-7.0); NEUT % 86.2 % (50.0-75.0); PLATELET COUNT 402 K/uL (130-400); RBC 4.16 Mil/uL (3.80-5.20); RED CELL DISTRIBUTION WIDTH 14.4 % (11.5-14.5); WHITE BLOOD COUNT 11.8 K/uL (4.8-10.8)
[2018-06-28 06:59] LABS: ALB/GLOB RATIO 1.3 (1.0-2.1); ALBUMIN 4.2 g/dL (3.5-5.0); ALT/SGPT 125 U/L (9-52); AST/SGOT 56 U/L (14-36); BILIRUBIN,DIRECT 0.3 mg/dL (0.0-0.4); BLOOD UREA NITROGEN 15 mg/dL (7-17); CALCIUM 9.4 mg/dl (8.6-10.4); GFR AFRICAN-AMERICAN > 60; GFR NON-AFRICAN AMERICAN > 60
[2018-06-28 07:26] LABS: HEPATITIS B SURFACE AG Negative (NEGATIVE)
[2018-06-28 07:31] LABS: HEPATITIS A IGM NEGATIVE (NEGATIVE); HEPATITIS B CORE AB NEGATIVE (NEGATIVE)
[2018-06-28 07:43] LABS: HEPATITIS C ANTIBODY NEGATIVE (NEGATIVE)
[2018-06-28 09:40] LABS: BANDS 2 % (0-2); LYMPHOCYTE 6 % (20-40); MONOCYTE 4 % (0-10); NEUTROPHIL 88 % (50-75); TOTAL CELLS COUNTED 100
[2018-06-28 09:41] LABS: PLATELET ESTIMATE SLIGHTLY INCREASED (NORMAL)
[2018-06-28] MEDS: Cefepime 1 GM in Sodium Chloride 0.9% 50 ML IVPB SCH (09:52)
[2018-06-28 10:44] LABS: N MENINGITIS ACY/W135 NEGATIVE (NEGATIVE); N MENINGITIS B/ECOLI K1 NEGATIVE (NEGATIVE); STREP PNEUMONIAE NEGATIVE (NEGATIVE); STREPTOCOCCUS B NEGATIVE (NEGATIVE)
--- NOTE | 2018-06-28 10:49 | CP.PCM.PN ---
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 Objective - Vital Signs/Intake and Output Vital Signs (last 24 hours): Temp Pulse Resp BP Pulse Ox 97.6 F 65 20 104/62 99 06/28/18 07:00 06/28/18 07:00 06/28/18 07:00 06/28/18 07:00 06/28/18 07:00 Intake and Output: 06/28/18 06/28/18 06:59 18:59 Intake Total 480 Balance 480 - Medications Medications: Current Medications Albuterol/Ipratropium (Duoneb 3 Mg/0.5 Mg (3 Ml) Ud) 3 ml INH RQ4 [facility] Last Admin: 06/28/18 03:20 Dose: Not Given Famotidine (Pepcid) 20 mg PO Q12 [facility] Last Admin: 06/28/18 09:52 Dose: 20 mg Heparin Sodium (Porcine) (Heparin) 5,000 units SC Q8 [facility] Last Admin: 06/28/18 05:43 Dose: 5,000 units Cefepime HCl 1 gm/ Sodium (Chloride) 50 mls @ 100 mls/hr IVPB DAILY [facility] PRN Reason: Protocol Last Admin: 06/28/18 09:52 Dose: 100 mls/hr Prednisone (Prednisone Tab) 20 mg PO DAILY [facility] Last Admin: 06/28/18 09:52 Dose: 20 mg Promethazine HCl/Dextromethorphan (Phenergan Dm Syrup) 5 ml PO Q6H PRN PRN Reason: Cough - Labs Labs: 06/28/18 06:35 06/28/18 06:35 PT 11.4 SECONDS (9.7-12.2) 06/25/18 15:20 INR 1.0 06/25/18 15:20 APTT 31 SECONDS (21-34) 06/25/18 15:20 - Head Exam Head Exam: ATRAUMATIC, NORMOCEPHALIC - Eye Exam Eye Exam: Normal appearance - ENT Exam ENT Exam: Mucous Membranes Moist - Neck Exam Neck Exam: Normal Inspection - Respiratory Exam Respiratory Exam: Rales - Cardiovascular Exam Cardiovascular Exam: REGULAR RHYTHM - GI/Abdominal Exam GI & Abdominal Exam: Soft, Normal Bowel Sounds Assessment and Plan (1) Pneumonia Assessment & Plan: clinically much improved LFTs improving Okay to go home Follow up in the office Switch to p.o. antibiotics Status: Acute (2) Pulmonary fibrosis Status: Acute
--- NOTE | 2018-06-28 13:56 | CP.PCM.PN ---
Subjective - Date & Time of Evaluation Date of Evaluation: 06/28/18 Time of Evaluation: 13:54 - Subjective Subjective: CHIEF COMPLAINTS TODAY : Patient is mute and history obtained through computers. Patient still has mild cough and shortness of breath. patient had a periods of sinus bradycardia during sleeping time. Currently patient has not complained but patient is mute ROS. HEENT : N. Resp : No hemoptysis Cardio : No anginal CP, PND, orthopnea, palpitation GI : No abd.pain, n/v ,diarrhea or GI bleeding . 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 Musculoskel : No joint swelling , Derm : No rash Psych : Normal affect. Ext : No swelling ,calf pain PE. Pt. is alert awake in no distress. V.S As noted in the chart Head ,ear nose,throat and eyes : Normal. Neck : Supple with normal carotids. Lungs: Bilateral poor air entry with rhonchi Heart : S1 & S2 normal with S4. No murmur. Abd : Soft non tender with normal bowel sounds. Neuro : Moves all ext. with no localized deficit. Ext : No edema with intact pulses.Non tender calves Derm : No rashes or decubitus ulcer. LABS/RADIOLOGY: Liver function is trending up ASSESSMENT/PLAN : Will discuss with ID for antibiotics. Continue present management Objective - Vital Signs/Intake and Output Vital Signs (last 24 hours): Temp Pulse Resp BP Pulse Ox 97.6 F 70 20 143/88 99 06/28/18 07:00 06/28/18 11:53 06/28/18 07:00 06/28/18 11:53 06/28/18 07:00 Intake and Output: 06/28/18 06/28/18 11:59 23:59 Intake Total 240 Balance 240 - Medications Medications: Current Medications Albuterol/Ipratropium (Duoneb 3 Mg/0.5 Mg (3 Ml) Ud) 3 ml INH RQ4 [facility] Last Admin: 06/28/18 03:20 Dose: Not Given Famotidine (Pepcid) 20 mg PO Q12 [facility] Last Admin: 06/28/18 09:52 Dose: 20 mg Heparin Sodium (Porcine) (Heparin) 5,000 units SC Q8 [facility] Last Admin: 06/28/18 13:39 Dose: 5,000 units Cefepime HCl 1 gm/ Sodium (Chloride) 50 mls @ 100 mls/hr IVPB DAILY [facility] PRN Reason: Protocol Last Admin: 06/28/18 09:52 Dose: 100 mls/hr Prednisone (Prednisone Tab) 20 mg PO DAILY [facility] Last Admin: 06/28/18 09:52 Dose: 20 mg Promethazine HCl/Dextromethorphan (Phenergan Dm Syrup) 5 ml PO Q6H PRN PRN Reason: Cough - Labs Labs: 06/28/18 06:35 06/28/18 06:35 PT 11.4 SECONDS (9.7-12.2) 06/25/18 15:20 INR 1.0 06/25/18 15:20 APTT 31 SECONDS (21-34) 06/25/18 15:20
--- NOTE | 2018-06-28 14:25 | CP.PCM.PN ---
Subjective - Date & Time of Evaluation Date of Evaluation: 06/28/18 Time of Evaluation: 14:24 - Subjective Subjective: CHIEF COMPLAINTS TODAY : afebrile. Still with some cough but dry Denies shortness of breath or chest pain periods of bradycardia while asleep. ROS. HEENT : N. Resp : No hemoptysis Cardio : No anginal CP, PND, orthopnea, palpitation GI : No abd.pain, n/v ,diarrhea or GI bleeding . 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 Musculoskel : No joint swelling , Derm : No rash Psych : Normal affect. Ext : No swelling ,calf pain PE. Pt. is alert awake in no distress. V.S As noted in the chart Head ,ear nose,throat and eyes : Normal. Neck : Supple with normal carotids. Lungs: Bilateral poor air entry, basilar rhonchi. -ve wheeze Heart : S1 & S2 normal . No murmur. Abd : Soft non tender with normal bowel sounds. Neuro : Moves all ext. with no localized deficit. Ext : No edema with intact pulses.Non tender calves Derm : No rashes or decubitus ulcer. LABS/RADIOLOGY: wbc 11.8 CREATININE 0.8 LFTS IMPROVING RICO -VE HEPATITIS SCREEN NEGATIVE. IMPRESSION; . PNEUMONIAE LEFT LOWER LOBE W BRONCHIECTASIS. .ILD WITH EARLY PULMONARY FIBROSIS ON TKI -OFEV. . EXACERBATION OF COPD. .TRANSAMINITIS-? DRUG-INDUCED. . HX OF ARTHRITIS ? RHEUMATOID. PLAN ; ON IV CEFIPIME 1GM OD DAILY.06/28/18 TAPERING STEROIDS PER PULMONARY. F/U ATYPICAL TITRES ALPHA 1 ANTITRYPSIN AB.-P WILL SWITCH HER TO BY MOUTH ABX IN A.M.if cleared by cardiology/PMD CASE DISCUSSED WITH PULMONARY. PATIENT WITH PERIODS OF BRADYCARDIA REPORTED. PATIENT TO BE OBSERVED WHILE IN HOSPITAL . ? HOLTER . Objective - Vital Signs/Intake and Output Vital Signs (last 24 hours): Temp Pulse Resp BP Pulse Ox 97.6 F 70 20 143/88 99 06/28/18 07:00 06/28/18 11:53 06/28/18 07:00 06/28/18 11:53 06/28/18 07:00 Intake and Output: 06/28/18 06/28/18 06:59 18:59 Intake Total 480 240 Balance 480 240 - Medications Medications: Current Medications Albuterol/Ipratropium (Duoneb 3 Mg/0.5 Mg (3 Ml) Ud) 3 ml INH RQ4 [facility] Last Admin: 06/28/18 03:20 Dose: Not Given Famotidine (Pepcid) 20 mg PO Q12 [facility] Last Admin: 06/28/18 09:52 Dose: 20 mg Heparin Sodium (Porcine) (Heparin) 5,000 units SC Q8 [facility] Last Admin: 06/28/18 13:39 Dose: 5,000 units Cefepime HCl 1 gm/ Sodium (Chloride) 50 mls @ 100 mls/hr IVPB DAILY [facility] PRN Reason: Protocol Last Admin: 06/28/18 09:52 Dose: 100 mls/hr Prednisone (Prednisone Tab) 20 mg PO DAILY [facility] Last Admin: 06/28/18 09:52 Dose: 20 mg Promethazine HCl/Dextromethorphan (Phenergan Dm Syrup) 5 ml PO Q6H PRN PRN Reason: Cough - Labs Labs: 06/28/18 06:35 06/28/18 06:35 PT 11.4 SECONDS (9.7-12.2) 06/25/18 15:20 INR 1.0 06/25/18 15:20 APTT 31 SECONDS (21-34) 06/25/18 15:20
[2018-06-29] MEDS: Albuterol-Ipratrop 3 mg / 0.5 (3 ml) UD INH SCH ×4 (03:17→16:13)
[2018-06-29 04:57] VITALS: TEMP 97.7; O2SAT 98
[2018-06-29 08:16] VITALS: BP 135/78; RESP 18
[2018-06-29] MEDS: Cefepime 1 GM in Sodium Chloride 0.9% 50 ML IVPB SCH (09:47)
--- NOTE | 2018-06-29 13:55 | CP.PCM.PN ---
Subjective - Date & Time of Evaluation Date of Evaluation: 06/29/18 Time of Evaluation: 13:55 Objective - Vital Signs/Intake and Output Vital Signs (last 24 hours): Temp Pulse Resp BP Pulse Ox 97.7 F 69 18 135/78 98 06/29/18 08:15 06/29/18 08:15 06/29/18 08:15 06/29/18 08:15 06/29/18 08:15 Intake and Output: 06/29/18 06/29/18 06:59 18:59 Intake Total 480 Balance 480 - Medications Medications: Current Medications Albuterol/Ipratropium (Duoneb 3 Mg/0.5 Mg (3 Ml) Ud) 3 ml INH RQ4 [facility] Last Admin: 06/29/18 11:06 Dose: 3 ml Famotidine (Pepcid) 20 mg PO Q12 [facility] Last Admin: 06/29/18 09:46 Dose: 20 mg Cefepime HCl 1 gm/ Sodium (Chloride) 50 mls @ 100 mls/hr IVPB DAILY [facility] PRN Reason: Protocol Last Admin: 06/29/18 09:47 Dose: 100 mls/hr Prednisone (Prednisone Tab) 20 mg PO DAILY [facility] Last Admin: 06/29/18 09:46 Dose: 20 mg Promethazine HCl/Dextromethorphan (Phenergan Dm Syrup) 5 ml PO Q6H PRN PRN Reason: Cough - Labs Labs: 06/28/18 06:35 06/28/18 06:35 PT 11.4 SECONDS (9.7-12.2) 06/25/18 15:20 INR 1.0 06/25/18 15:20 APTT 31 SECONDS (21-34) 06/25/18 15:20
--- NOTE | 2018-06-29 14:33 | CP.PCM.DIS ---
Provider - Provider Date of Admission: 06/25/18 18:08 Attending physician: Tanya Coello MD Time Spent in preparation of Discharge (in minutes): 35 Hospital Course - Lab Results Lab Results: Micro Results 06/25/18 16:30 Blood Blood Culture - Preliminary NO GROWTH AFTER 3 DAYS 06/25/18 16:00 Blood Blood Culture - Preliminary NO GROWTH AFTER 3 DAYS Most Recent Lab Values WBC 11.8 K/uL (4.8-10.8) H 06/28/18 06:35 RBC 4.16 Mil/uL (3.80-5.20) 06/28/18 06:35 Hgb 12.3 g/dL (11.0-16.0) 06/28/18 06:35 Hct 36.3 % (34.0-47.0) 06/28/18 06:35 MCV 87.3 fL (81.0-99.0) 06/28/18 06:35 MCH 29.5 pg (27.0-31.0) 06/28/18 06:35 MCHC 33.8 g/dL (33.0-37.0) 06/28/18 06:35 RDW 14.4 % (11.5-14.5) 06/28/18 06:35 Plt Count 402 K/uL (130-400) H 06/28/18 06:35 MPV 7.3 fL (7.2-11.7) 06/28/18 06:35 Neut % (Auto) 86.2 % (50.0-75.0) H 06/28/18 06:35 Lymph % (Auto) 8.2 % (20.0-40.0) L 06/28/18 06:35 [place] % (Auto) 5.4 % (0.0-10.0) 06/28/18 06:35 Eos % (Auto) 0.0 % (0.0-4.0) 06/28/18 06:35 Baso % (Auto) 0.2 % (0.0-2.0) 06/28/18 06:35 Neut # (Auto) 10.2 K/uL (1.8-7.0) H 06/28/18 06:35 Lymph # (Auto) 1.0 K/uL (1.0-4.3) 06/28/18 06:35 [place] # (Auto) 0.6 K/uL (0.0-0.8) 06/28/18 06:35 Eos # (Auto) 0.0 K/uL (0.0-0.7) 06/28/18 06:35 Baso # (Auto) 0.0 K/uL (0.0-0.2) 06/28/18 06:35 Neutrophils % (Manual) 88 % (50-75) H 06/28/18 06:35 Band Neutrophils % 2 % (0-2) 06/28/18 06:35 Lymphocytes % (Manual) 6 % (20-40) L 06/28/18 06:35 Monocytes % (Manual) 4 % (0-10) 06/28/18 06:35 Platelet Estimate Slightly increased (NORMAL) H 06/28/18 06:35 RBC Morphology Normal 06/28/18 06:35 Hypochromasia (manual) Slight 06/27/18 06:11 Poikilocytosis (manual Slight 06/27/18 06:11 Anisocytosis (manual) Slight 06/27/18 06:11 PT 11.4 SECONDS (9.7-12.2) 06/25/18 15:20 INR 1.0 06/25/18 15:20 APTT 31 SECONDS (21-34) 06/25/18 15:20 Sodium 146 mmol/L (132-148) 06/28/18 06:35 Potassium 4.3 mmol/L (3.6-5.2) 06/28/18 06:35 Chloride 108 mmol/L (98-107) H 06/28/18 06:35 Carbon Dioxide 26 mmol/L (22-30) 06/28/18 06:35 Anion Gap 16 (10-20) 06/28/18 06:35 BUN 15 mg/dL (7-17) 06/28/18 06:35 Creatinine 0.8 mg/dL (0.7-1.2) 06/28/18 06:35 Est GFR ( Amer) > 60 06/28/18 06:35 Est GFR (Non-Af Amer) > 60 06/28/18 06:35 Random Glucose 95 mg/dL (65-105) 06/28/18 06:35 Calcium 9.4 mg/dl (8.6-10.4) 06/28/18 06:35 Phosphorus 2.6 mg/dL (2.5-4.5) 06/27/18 06:11 Magnesium 2.5 mg/dL (1.6-2.3) H 06/27/18 06:11 Total Bilirubin 0.3 mg/dL (0.2-1.3) 06/28/18 06:35 Direct Bilirubin 0.3 mg/dL (0.0-0.4) 06/28/18 06:35 AST 56 U/L (14-36) H D 06/28/18 06:35 ALT 125 U/L (9-52) H 06/28/18 06:35 Alkaline Phosphatase 112 U/L (38-126) 06/28/18 06:35 Total Creatine Kinase 79 U/L (30-135) 06/25/18 15:20 CK-MB (Mass) 0.25 ng/mL (0.0-3.38) 06/25/18 15:20 Troponin I < 0.0120 ng/mL (0.00-0.120) 06/25/18 15:20 NT-Pro-B Natriuret Pep 292 pg/mL (0-900) 06/25/18 15:20 Total Protein 7.4 g/dL (6.3-8.3) 06/28/18 06:35 Albumin 4.2 g/dL (3.5-5.0) 06/28/18 06:35 Globulin 3.2 gm/dL (2.2-3.9) 06/28/18 06:35 Albumin/Globulin Ratio 1.3 (1.0-2.1) 06/28/18 06:35 Guhny-6-Hcwriexlmxf 171 mg/dL (83-199) 06/28/18 06:35 RICO 6 Profile Negative (NEGATIVE) 06/28/18 06:35 Hepatitis A IgM Ab Negative (NEGATIVE) 06/28/18 06:35 Hep Bs Antigen Negative (NEGATIVE) 06/28/18 06:35 Hep B Core IgM Ab Negative (NEGATIVE) 06/28/18 06:35 Hepatitis C Antibody Negative (NEGATIVE) 06/28/18 06:35 H.influenzae Type B Ag Negative (NEGATIVE) 06/27/18 06:00 Ur L.pneumophila Ag Negative (NEGATIVE) 06/27/18 22:27 Mycoplasma pneumon IgM Negative (NEGATIVE) 06/28/18 06:35 N.meningitidis ACY/W135 Negative (NEGATIVE) 06/27/18 06:00 N.meningi B/E.coli K1 Ag Negative (NEGATIVE) 06/27/18 06:00 Group B Strep Antigen Negative (NEGATIVE) 06/27/18 06:00 S. pneumoniae Antigen Negative (NEGATIVE) 06/27/18 06:00 - Hospital Course Hospital Course: Patient is admitted from [facility] emergency room with shortness of breath wheezing cough with mild dry expectoration. Patient has history of pulmonary fibrosis. CAT scan of the chest was done which showed generalized fibrosis and reticular pattern. With possibility of pneumonia on the lower base. ID pulmonary consult was obtained Patient was treated with IV antibiotics and IV steroids and nebulizer. CT scan also showed some bronchiectasis and patient improved on IV antibiotics prior to discharge patient had a brief episode of sinus bradycardia during sleeping hours. Patient was observed for 24 hours and no further bradycardia. As per the pulmonary patient was cleared for discharge. Patient was discharged on by mouth antibiotics and her home medication. Discharge Exam - Head Exam Head Exam: ATRAUMATIC, NORMOCEPHALIC Discharge Plan - Follow Up Plan Condition: STABLE Disposition: HOME/ ROUTINE Additional Instructions: -FOLLOW UP WITH DR. COELLO IN THE OFFICE IN 5-7 DAYS---CALL THE OFFICE TO MAKE AN APPOINTMENT. -CONTINUE HOME MEDICATIONS USUAL. -YOU HAVE BEEN PRESCRIBED THE FOLLOWING MEDICATIONS: 1) - Referrals: Alexander De Leon MD [Staff Provider] - Isela Pickens MD [Staff Provider] - Tanya Coello MD [Staff Provider] -
--- NOTE | 2018-06-29 14:52 | CP.PCM.PN ---
Subjective - Date & Time of Evaluation Date of Evaluation: 06/29/18 Time of Evaluation: 14:52 - Subjective Subjective: SMASHER HAND FROM "ARIANNA SMITH (#[id number]) -FOLLOW UP WITH DR. MILLER AND DR. HERNANDEZ IN THEIR OFFICE IN 5-7 DAYS---CALL THE OFFICE TO MAKE AN APPOINTMENT. -FOLLOW UP WITH DR. ADRIAN IN THE OFFICE. -CONTINUE HOME MEDICATIONS USUAL, INCLUDING ANY INHALERS WELL YOUR LIPITOR. -YOU HAVE BEEN PRESCRIBED THE FOLLOWING MEDICATIONS: 1) ANTIBIOTIC: VANTIN 200 MG---TAKE 1 TABLET BY MOUTH TWICE A DAY FOR A TOTAL OF 7 DAYS (TAKE AFTER BREAKFAST AND AFTER DINNER); YOU MAY START TAKING THIS MEDICATION TONIGHT (06/29/18). 2) PROBIOTIC/VITAMIN FOR YOUR STOMACH WHILE YOU ARE TAKING THE ANTIBIOTIC: FLORASTOR 250 MG---TAKE 1 CAPSULE BY MOUTH TWICE A DAY FOR A TOTAL OF 7 DAYS (TAKE AFTER BREAKFAST AND AFTER DINNER); YOU MAY START TAKING THIS MEDICATION TONIGHT (06/29/18). -IF YOU HAVE ANY FURTHER QUESTIONS OR CONCERNS, CONTACT DR. MILLER OR DR. ADRIAN. Objective - Vital Signs/Intake and Output Vital Signs (last 24 hours): Temp Pulse Resp BP Pulse Ox 97.7 F 83 18 135/78 98 06/29/18 08:15 06/29/18 12:00 06/29/18 08:15 06/29/18 08:15 06/29/18 08:15 Intake and Output: 06/29/18 06/29/18 06:59 18:59 Intake Total 480 Balance 480 - Medications Medications: Current Medications Albuterol/Ipratropium (Duoneb 3 Mg/0.5 Mg (3 Ml) Ud) 3 ml INH RQ4 [facility] Last Admin: 06/29/18 11:06 Dose: 3 ml Famotidine (Pepcid) 20 mg PO Q12 [facility] Last Admin: 06/29/18 09:46 Dose: 20 mg Cefepime HCl 1 gm/ Sodium (Chloride) 50 mls @ 100 mls/hr IVPB DAILY [facility] PRN Reason: Protocol Last Admin: 06/29/18 09:47 Dose: 100 mls/hr Prednisone (Prednisone Tab) 20 mg PO DAILY [facility] Last Admin: 06/29/18 09:46 Dose: 20 mg Promethazine HCl/Dextromethorphan (Phenergan Dm Syrup) 5 ml PO Q6H PRN PRN Reason: Cough - Labs Labs: 06/28/18 06:35 06/28/18 06:35 PT 11.4 SECONDS (9.7-12.2) 06/25/18 15:20 INR 1.0 06/25/18 15:20 APTT 31 SECONDS (21-34) 06/25/18 15:20
[2018-06-29 16:21] VITALS: PULSE 87
--- NOTE | 2018-07-01 07:07 | CON ---
Copied To: Isela Pickens MD Attending MD: Isela Pickens MD DATE: 06/27/2018 INFECTIOUS DISEASE CONSULTATION. REQUESTED BY: Tanya Coello MD REASON FOR CONSULTATION: Bilateral pneumonia and idiopathic pulmonary fibrosis. 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 Chest x-ray on admission showed bilateral reticular opacity, more prominent in the left lower lobes, consistent with lung fibrosis versus infiltrates. A CT chest and pulmonary consultation was obtained. As reported, CT chest was consistent with ground-glass opacities, more prominent in the lower lobes and peripheral portion of the upper lobes consistent with interstitial lung disease and early lung fibrosis. Also, bronchiectasis was seen in the lung bases and nonspecific right breast nodule was also seen. The patient states she has been on tyrosine kinase inhibitor for idiopathic pulmonary fibrosis, Ofev as per her fashion supervisor, Dr. De Leon. The patient was started on broad-spectrum antibiotics including Rocephin and Zithromax. Infectious Disease consultation was requested by PMD as he noted elevated liver enzymes as well as persistent cough. The patient presently denies any expectoration, but states that on admission, she had copious phlegm. The patient denies any headaches and denies any diarrhea. 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 She denies any previous exposure or recent contact with TB. PAST MEDICAL HISTORY: As above, history of idiopathic pulmonary fibrosis. FAMILY HISTORY: Unremarkable, not well known. SOCIAL HISTORY: Denies history of tobacco, alcohol use, or substance abuse. IMMUNIZATION HISTORY: She states she has got pneumococcal vaccination and influenza vaccination but denies any tetanus toxoid exposure or vaccination. REVIEW OF SYSTEMS: Limited but the patient still complains of some cough, which is becoming nonproductive and dry in nature. GI: Denies loss of weight; presently denies any nausea, vomiting, abdominal pain, or diarrhea. : Unremarkable. No dysuria, no hematuria. [employer]: No headaches, no numbness, no weakness, no seizures, no sinus problems. MEDICATIONS: As per chart review, the patient is presently off Zithromax, which was discontinued today, presently on Rocephin 1 g once a day daily. Other medications include heparin subcutaneously, Pepcid, Phenergan DM cough syrup, and prednisone that is started today after discontinuing IV Solu-Medrol. Presently, on prednisone 20 mg p.o. daily. PHYSICAL EXAMINATION: GENERAL: The patient is awake and alert. VITAL SIGNS: Blood pressure 105/64, respirations 18, pulse of 82, and pulse ox is 98%. HEENT: Pupils equal and reactive to light and accommodation. Extraocular movements are full. Fundus negative. Sclerae are nonicteric and conjunctivae are normal. NECK: JVP not elevated. Neck appears to be supple. LUNGS: Fine crackles at the bases, expiratory wheeze. CARDIOVASCULAR SYSTEM: . No murmur and no gallop. ABDOMEN: Soft, bowel sounds are present. EXTREMITIES: No cyanosis, clubbing, or edema. CENTRAL NERVOUS SYSTEM: No gross deficits, moves all extremities. LABORATORY DATA: WBC is 10.5, H and H are 12 and 34.8, and platelets 366. Creatinine is 0.7, BUN of 13. Liver function tests, bilirubin 0.3, AST 79, ALT 137, alkaline phosphatase normal. CT of the chest without contrast 06/25/2018 as reported in the history with bilateral ground-glass opacities, more prominent lower lobes and peripheral portions of the upper lobes and early lung fibrosis with mild bronchiectasis lung bases. See full report. IMPRESSION: 1. Pneumonia, left lower lobe with bronchiectasis. 2. Interstitial lung disease with early pulmonary fibrosis, on tyrosine kinase inhibitors including Ofev. 3. Exacerbation of chronic obstructive pulmonary disease. 4. Transaminitis, most likely drug induced. 5. 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 PLAN: Jay cultures done. Presently, the patient denies any sputum expectoration. We will get antigens, especially Pneumococcal antigen, Legionella antigen, and atypical titers, sed rate, PRP, rheumatoid factor and [place], antistreptolysin antibody . Discontinue IV Rocephin. Start the patient on IV cefepime 1 g once a day daily. Followup liver function tests in the a.m. Case discussed with PMD and fashion supervisor. Case also discussed with the staff and orders written. We will follow the patient along with you. Also, we will get hepatitis screen as already ordered. Thank you very much for allowing me to participate in the care of your patient. Isela Pickens MD
== END 2018-06-29 16:00 | disposition home or self-care (01) ==
LOC: C.ER 14:15 → C.9E 18:08 → C.6T 19:02
PROVIDERS: ADMIT Internal Medicine Cardiovascular Disease; ATTEND Internal Medicine Cardiovascular Disease
DX: J47.0 Bronchiectasis with acute lower respiratory infection (principal); J84.112 Idiopathic pulmonary fibrosis
CPT/HCPCS: 36415; 71046; 71250; 80053; 80074; 82103; 82248; 82550; 82553; 83520; 83735; 83880; 84100; 84484; 85025; 85610; 85730; 86038; 86403; 86738; 86803; 87040; 87449; 93005; 94640; 94760; 99285; G0378; J0456; J0692; J0696; J1644; J2930; J7050

== ENCOUNTER 2018-12-30 15:39 | Outpatient (CLI) | payer OTHER | END 2018-12-30 15:40 | disposition home or self-care (01) | LOC: C.CTH 15:39 ==